=== PATIENT | female | born 1995 | race Caucasian/White ===

== ENCOUNTER 2018-08-24 17:43 | Emergency (ER) | payer BC ==
--- NOTE | 2018-08-24 17:51 | ER Report ---
History and Physical Time Seen By MD: 17:51 HPI/ROS CHIEF COMPLAINT: Dark bloody stools HISTORY OF PRESENT ILLNESS: This is a 22-year-old female who presents to the emergency department for dark bloody stools. Patient states she's had lower abd ominal cramping for approximately 3 weeks, increased intensity today, had a dark bloody stool, she states that was of large quantity. Patient has a history of gastroparesis and Crohn's disease. Takes no medications, has not taken any medications. Patient also states that over the last several weeks she's had significant fatigue, constantly feeling tired. Intermittent nausea no vomiting. No chest pain or shortness of breath. No headaches. No fevers or chills. REVIEW OF SYSTEMS: Constitutional: No fever, no chills. Eyes: No discharge. ENT: No sore throat. Cardiovascular: No chest pain, no palpitations. Respiratory: No cough, no shortness of breath. Gastrointestinal: As above. Genitourinary: No hematuria. Musculoskeletal: No back pain. Skin: No rashes. Neurological: No headache. Allergies: Coded Allergies: gluten (Verified Adverse Reaction, Mild, abdominal pain and vomiting , 08/24/18) Past Medical/Surgical History The patient has a past medical and surgical history of Crohn's disease and gastroparesis. Reviewed Nurses Notes: Yes Constitutional Vital Sign - Last 24 Hours 08/24/18 08/24/18 08/24/18 08/24/18 17:48 17:48 17:58 18:00 Temp 97.7 Pulse 87 83 Resp 16 B/P (MAP) 137/85 (102) 137/85 126/85 (99) Pulse Ox 97 89 O2 Delivery Room Air 08/24/18 08/24/18 08/24/18 08/24/18 18:28 18:30 18:43 19:13 Pulse 82 81 86 B/P (MAP) 122/84 (97) Pulse Ox 97 97 08/24/18 08/24/18 08/24/18 08/24/18 19:28 19:30 19:35 19:50 Pulse 93 95 96 B/P (MAP) 98/65 (76) Pulse Ox 96 97 95 08/24/18 08/24/18 20:00 20:05 Pulse 100 B/P (MAP) 115/72 (86) Pulse Ox 94 Physical Exam General Appearance: The patient is alert, has no immediate need for airway protection and no signs of toxicity. Eyes: Pupils equal and round no injection. Pale conjunctiva. ENT, Mouth: Mucous membranes are moist. Respiratory: There are no retractions, lungs are clear to auscultation. Cardiovascular: Regular rate and rhythm, faint systolic murmur, no clicks or rubs. Gastrointestinal: Abdomen is soft and non tender, no masses, bowel sounds normal. Neurological: Alert and oriented 4. Moving all extremities. Following all commands. No focal neuro deficits. Skin: Warm and dry, no rashes. Musculoskeletal: Neck is supple non tender. No CVA tenderness. Extremities are nontender, nonswollen and have full range of motion. DIFFERENTIAL DIAGNOSIS: After history and physical exam differential diagnosis was considered for abdominal pain in a female including but not limited to ovarian cyst, pelvic inflammatory disease, ovarian torsion, urinary tract infection, and appendicitis. Medical Decision Making Data Points Result Diagram: 08/24/18 1820 08/24/18 1820 Laboratory Hematology Test 08/24/18 18:09 08/24/18 18:20 Urine Color Straw Urine Clarity Clear Urine pH 6.0 pH (4.8-9.5) Urine Specific [place] 1.004 Urine Protein Negative mg/dL (NEGATIVE) Urine Glucose (UA) Negative mg/dL (NEGATIVE) Urine Ketones Negative mg/dL (NEGATIVE) Urine Blood Negative (NEGATIVE) Urine Nitrite Negative (NEGATIVE) Urine Bilirubin Negative (NEGATIVE) Urine Urobilinogen Negative mg/dL (0.2-1.9) Urine Leukocyte Esterase Trace (NEGATIVE) Urine RBC 1 /HPF (0-2/HPF) Urine WBC 6 /HPF (0-5/HPF) Urine Squamous Epithelial Cells Many /LPF (</=FEW) Urine Bacteria Negative /HPF (NONE-FEW) Urine Mucus None /HPF (NONE-FEW) Red Blood Count 5.52 M/uL (4.17-5.56) Mean Corpuscular Volume 86.8 fL (80.0-96.0) Mean Corpuscular Hemoglobin 29.7 pg (26.0-33.0) Mean Corpuscular Hemoglobin Concent 34.2 g/dL (32.0-36.0) Red Cell Distribution Width 12.8 % (11.5-14.5) Mean Platelet Volume 7.8 fL (7.2-11.1) Neutrophils (%) (Auto) 57.0 % (39.4-72.5) Lymphocytes (%) (Auto) 31.7 % (17.6-49.6) Monocytes (%) (Auto) 8.6 % (4.1-12.4) Eosinophils (%) (Auto) 2.3 % (0.4-6.7) Basophils (%) (Auto) 0.4 % (0.3-1.4) Nucleated RBC Relative Count (auto) 0.0 /100WBC Neutrophils # (Auto) 4.5 K/uL (2.0-7.4) Lymphocytes # (Auto) 2.5 K/uL (1.3-3.6) Monocytes # (Auto) 0.7 K/uL (0.3-1.0) Eosinophils # (Auto) 0.2 K/uL (0.0-0.5) Basophils # (Auto) 0.0 K/uL (0.0-0.1) Nucleated RBC Absolute Count (auto) 0.00 K/uL Sodium Level 137 mmol/L (137-145) Potassium Level 3.5 mmol/L (3.5-5.0) Chloride Level 101 mmol/L (98-107) Carbon Dioxide Level 26 mmol/L (22-31) Blood Urea Nitrogen 13 mg/dl (7-18) Creatinine 0.80 mg/dl (0.52-1.04) Glomerular Filtration Rate Calc > 60.0 Random Glucose 96 mg/dl (75-110) Calcium Level 9.5 mg/dl (8.4-10.2) Total Bilirubin 0.5 mg/dl (0.2-1.3) Aspartate Amino Transf (AST/SGOT) 30 U/L (0-35) Alanine Aminotransferase (ALT/SGPT) 35 U/L (0-56) Alkaline Phosphatase 60 U/L (0-126) Total Protein 7.6 g/dl (6.3-8.2) Albumin 4.5 g/dl (3.5-5.0) Human Chorionic Gonadotropin, Qual Negative (NEGATIVE) Chemistry Test 08/24/18 18:09 08/24/18 18:20 Urine Color Straw Urine Clarity Clear Urine pH 6.0 pH (4.8-9.5) Urine Specific [place] 1.004 Urine Protein Negative mg/dL (NEGATIVE) Urine Glucose (UA) Negative mg/dL (NEGATIVE) Urine Ketones Negative mg/dL (NEGATIVE) Urine Blood Negative (NEGATIVE) Urine Nitrite Negative (NEGATIVE) Urine Bilirubin Negative (NEGATIVE) Urine Urobilinogen Negative mg/dL (0.2-1.9) Urine Leukocyte Esterase Trace (NEGATIVE) Urine RBC 1 /HPF (0-2/HPF) Urine WBC 6 /HPF (0-5/HPF) Urine Squamous Epithelial Cells Many /LPF (</=FEW) Urine Bacteria Negative /HPF (NONE-FEW) Urine Mucus None /HPF (NONE-FEW) White Blood Count 7.9 k/uL (4.5-11.0) Red Blood Count 5.52 M/uL (4.17-5.56) Hemoglobin 16.4 g/dL (12.0-16.0) Hematocrit 47.9 % (34.0-47.0) Mean Corpuscular Volume 86.8 fL (80.0-96.0) Mean Corpuscular Hemoglobin 29.7 pg (26.0-33.0) Mean Corpuscular Hemoglobin Concent 34.2 g/dL (32.0-36.0) Red Cell Distribution Width 12.8 % (11.5-14.5) Platelet Count 325 K/uL (150-450) Mean Platelet Volume 7.8 fL (7.2-11.1) Neutrophils (%) (Auto) 57.0 % (39.4-72.5) Lymphocytes (%) (Auto) 31.7 % (17.6-49.6) Monocytes (%) (Auto) 8.6 % (4.1-12.4) Eosinophils (%) (Auto) 2.3 % (0.4-6.7) Basophils (%) (Auto) 0.4 % (0.3-1.4) Nucleated RBC Relative Count (auto) 0.0 /100WBC Neutrophils # (Auto) 4.5 K/uL (2.0-7.4) Lymphocytes # (Auto) 2.5 K/uL (1.3-3.6) Monocytes # (Auto) 0.7 K/uL (0.3-1.0) Eosinophils # (Auto) 0.2 K/uL (0.0-0.5) Basophils # (Auto) 0.0 K/uL (0.0-0.1) Nucleated RBC Absolute Count (auto) 0.00 K/uL Glomerular Filtration Rate Calc > 60.0 Calcium Level 9.5 mg/dl (8.4-10.2) Total Bilirubin 0.5 mg/dl (0.2-1.3) Aspartate Amino Transf (AST/SGOT) 30 U/L (0-35) Alanine Aminotransferase (ALT/SGPT) 35 U/L (0-56) Alkaline Phosphatase 60 U/L (0-126) Total Protein 7.6 g/dl (6.3-8.2) Albumin 4.5 g/dl (3.5-5.0) Human Chorionic Gonadotropin, Qual Negative (NEGATIVE) Urinalysis Test 08/24/18 18:09 Urine Color Straw Urine Clarity Clear Urine pH 6.0 pH (4.8-9.5) Urine Specific [place] 1.004 Urine Protein Negative mg/dL (NEGATIVE) Urine Glucose (UA) Negative mg/dL (NEGATIVE) Urine Ketones Negative mg/dL (NEGATIVE) Urine Blood Negative (NEGATIVE) Urine Nitrite Negative (NEGATIVE) Urine Bilirubin Negative (NEGATIVE) Urine Urobilinogen Negative mg/dL (0.2-1.9) Urine Leukocyte Esterase Trace (NEGATIVE) Urine RBC 1 /HPF (0-2/HPF) Urine WBC 6 /HPF (0-5/HPF) Urine Squamous Epithelial Cells Many /LPF (</=FEW) Urine Bacteria Negative /HPF (NONE-FEW) Urine Mucus None /HPF (NONE-FEW) EKG/Imaging Imaging Location[place] [facility] [place]: Alejandra Nolasco : 1995 Visit/Account:[id number] Date of Sevice: 08/24/2018 EXAMINATION: CT abdomen and pelvis with contrast COMPARISON: None. HISTORY: abd pain, dark bloody stool PROCEDURE: Multiplanar contrast enhanced CT of the abdomen and pelvis with 85 mL intravenous Isovue 370. One of the following dose optimization techniques was utilized in the performance of this exam: Automated exposure control; adjustment of the mA and/or kV according to the patient's size; or use of an iterative reconstruction technique. Specific details can be referenced in the facility's radiology CT exam operational policy. FINDINGS: Visualized thorax: No acute findings. Liver: Negative. Gallbladder and biliary system: Negative Spleen: Negative. Pancreas: Negative. Adrenal glands: Negative. Kidneys and bladder: No renal mass or evidence of an obstructive uropathy. Urinary bladder is unremarkable. Vessels: Within normal limits. Bowel and mesentery: Stomach, small bowel, and appendix are within normal limits. Small amount of stool in the colon. No bowel or mesenteric inflammation. Pelvic organs: Negative. Lymph nodes: No adenopathy. Free air/free fluid: None. Abdominal wall and osseous structures: Negative. IMPRESSION: Negative CT abdomen and pelvis. Report Dictated By: Juma Mi MD at 08/24/2018 7:25 PM Report E-Signed By: Juma Mi MD at 08/24/2018 7:35 PM WSN:[id number] ED Course/Re-evaluation Clinical Indication for ER IV: Hydration, IV Access ED Course The patient was admitted to room. A history of physical were obtained. Differential diagnoses were considered. IV was started. A CBC, CMP were obtaine d. CBC showing H&H 16.4 and 47.9, chemistry unremarkable, negative hCG, contaminated UA. A CT of the abdomen was negative for any acute anterior abdominal abnormalities. I did review the results with the patient. I did tell him I don't have a clear explanation for the abdominal pain, could be secondary to her chronic Crohn's disease although it does sound well controlled. I did recommend establishing with a primary care provider within the next 1 week, and I also recommended following up with Dr. Romero or over For a colonoscopy for definitive intervention. She was also instructed to take 40 mg Protonix daily for the next 2 weeks. She was given a dose of 40 mg IV Protonix. She was also given a 1 L normal saline bolus. The patient was also instructed to return to the emergency department for any other concerns or worsening symptoms., She was in agreement with this plan of care and discharged home. Decision to Disposition Date: Aug 24, 2018 Decision to Disposition Time: 20:13 Depart Departure Latest Vital Signs Vital Signs Date Time Temp Pulse Resp B/P (MAP) Pulse Ox O2 Delivery O2 Flow Rate FiO2 08/24/18 20:05 100 94 08/24/18 20:00 115/72 (86) 08/24/18 17:48 97.7 16 Room Air Impression: Primary Impression: Abdominal pain Additional Impression: Blood in stool Condition: Improved Disposition: HOME OR SELF-CARE Referrals: ROSY ROMERO,CASEY Dye MD Patient Instructions: Abdominal Pain (ED) Additional Instructions: There were no concerning findings on your CT today, your blood work looks good. I would recommend establishing with a PCP within the next week for reevaluation of your symptoms. I would also recommend following up with Dr. Romero or Dr. Dove to discuss the possibility of a colonoscopy. Please continue to drink plenty of fluids. Get plenty of rest. Take 40mg of protonix once a day for the next 2 weeks. Return to the ED for any other concerns or worsening symptoms. Problem Qualifiers Primary Impression: Abdominal pain Abdominal location: unspecified location Qualified Codes: R10.9 - Unspecified abdominal pain ADA FOY PIPE THREADER-BC Aug 24, 2018 17:51
[2018-08-24] MEDS ORDERED: NS(*) 0.9% 1000 ML BAG 1,000 ML IV ONE (18:03)
[2018-08-24] MEDS ORDERED: PANTOPRAZOLE SOD 40 MG IV VIAL IVP ONE (18:05)
[2018-08-24] MEDS ORDERED: IOPAMIDOL 76% 100 ML INFUS BTL 100 ML ONE (18:20)
[2018-08-24 18:34] LABS: PLATELET COUNT, AUTOMATED 325 K/uL (150-450)
--- NOTE | 2018-08-24 19:38 | RADIOLOGY IMAGING REPORT ---
FACILITY: [facility] - [place] PATIENT NAME: Alejandra Nolasco : 1995 MR: [id number] V: [id number] EXAM DATE: ORDERING PHYSICIAN: ADA FOY TECHNOLOGIST: Location: [facility] - [place] Patient: Alejandra Nolasco : 1995 Visit/Account:[id number] Date of Sevice: 08/24/2018 EXAMINATION: CT abdomen and pelvis with contrast COMPARISON: None. HISTORY: abd pain, dark bloody stool PROCEDURE: Multiplanar contrast enhanced CT of the abdomen and pelvis with 85 mL intravenous Isovue 3 70. One of the following dose optimization techniques was utilized in the performance of this exam: A utomated exposure control; adjustment of the mA and/or kV according to the patient's size; or use of an iterative reconstruction technique. Specific details can be referenced in the facility's radiolo gy CT exam operational policy. FINDINGS: Visualized thorax: No acute findings. Liver: Negative. Gallbladder and biliary system: Negative Spleen: Negative. Pancreas: Negative. Adrenal glands: Negative. Kidneys and bladder: No renal mass or evidence of an obstructive uropathy. Urinary bladder is unrema rkable. Vessels: Within normal limits. Bowel and mesentery: Stomach, small bowel, and appendix are within normal limits. Small amount of sto ol in the colon. No bowel or mesenteric inflammation. Pelvic organs: Negative. Lymph nodes: No adenopathy. Free air/free fluid: None. Abdominal wall and osseous structures: Negative. IMPRESSION: Negative CT abdomen and pelvis. Report Dictated By: Juma Mi MD at 08/24/2018 7:25 PM Report E-Signed By: Juma Mi MD at 08/24/2018 7:35 PM [id number]
[2018-08-24 20:00] VITALS: BP 115/72
== END 2018-08-24 20:30 | disposition home or self-care (01) ==
LOC: ER 17:55
DX: R10.30 Lower abdominal pain, unspecified (principal); K92.1 Melena
CPT/HCPCS: 74177; 81001; 84703; 85025; 86850; 86900; 86901; 96361; 96374; 99284; C9113; J7030; Q9967; 82040; 82247; 82310; 82374; 82435; 82565; 82947; 84075; 84132; 84155; 84295; 84450; 84460; 84520

== ENCOUNTER 2018-10-31 00:46 | Day surgery (SDC) | payer BC ==
[2018-10-31] VITALS (7 sets, daily range): BP systolic 95–118; BP diastolic 43–74
[~2018-10-31] VITALS: Ht 165.1 cm; Wt 75.7 kg
[2018-10-31] MEDS ORDERED: KETAMINE HCL 500 MG/10 ML VIAL ONE (07:09)
[2018-10-31] MEDS ORDERED: PROPOFOL EMUL(*) 10MG/ML 20 ML 60 ML ONE (07:09)
[2018-10-31] MEDS ORDERED: LIDOCAINE MPF 1% 5 ML VIAL ONE (07:09)
[2018-10-31] MEDS ORDERED: NORMOSOL R SOLN(*) 1000 ML BAG 1,000 ML IV PRN (07:15)
[2018-10-31] MEDS ORDERED: LIDOCAINE/SOD BICARB 8.4% SYR ID ONE (07:15)
--- NOTE | 2018-10-31 09:14 | Short(Outpt) Discharge Summary ---
Discharge Summary Reason for Hosp/Final Diag: (1) Blood in stool Status: Acute Hospital Course & Plan: pt presented for egd and colonoscopy. she tolerated the procedure well. she will be discharged home when criteria met. (2) Abdominal pain Status: Acute Departure Discharge to: Home Discharge Instructions Diet: Regular Activity: As Tolerated Special Instructions: we will call you in 10 days with biopsy results. ROSY JOYNER Oct 31, 2018 09:14
== END 2018-10-31 10:02 | disposition home or self-care (01) ==
LOC: OR 00:46
PROVIDERS: ATTEND Surgery
DX: K29.70 Gastritis, unspecified, without bleeding (principal)
CPT/HCPCS: 00813; 43239; 45378; 81025; 87077; 88305; 88313; 88344; J2001; J2704

== ENCOUNTER 2018-11-12 22:01 | Emergency (ER) | payer BC ==
--- NOTE | 2018-11-12 22:16 | ER Report ---
History and Physical Time Seen By MD: 20:05 Hx. of Stated Complaint: PATIENT HAD A ENDOSCOPY/COLONOSCOPY ON THE , DIAGNOSED CELIAC DISEASE AND GASTROPORESIS. PATIENT STATES STARTED HAVING A LOT OF LOWER ABDOMINAL PAIN, PATIENT STATES "IT FEELS LIKE THERE IS SOMETHING STUCK", PATIENT HAVING A LOT OF PRESSURE AND THEN SHARP WHILE TRYING TO HAVE BOWEL MOVEMENT. PATIENT STATES HAD A BOWEL MOVEMENT BOWEL MOVEMENT 30MINS AGO THAT WAS MOSTLY MAROON IN COLOR, MORE BLOODY THAN IT HAS BEEN. HPI/ROS CHIEF COMPLAINT: Abdominal pain, bloody stool HISTORY OF PRESENT ILLNESS: 23-year-old female has a history of celiac disease and gastroparesis. On 02 November she had an endoscopy and colonoscopy performed by Dr. Romero. She states that a biopsy showed celiac disease and the colonoscopy was otherwise normal. She has not had complications since then. This evening she was at the gym when she noticed sudden onset of left lower quadrant sharp pain. This was quickly followed by a bowel movement which was primarily blood. The blood was dark red in nearly maroon color. This was 30 minutes prior to arrival. She has not had subsequent stool. Pain is improved to 6 out of 10 but is still persistent. It is nonradiating. There are no other exacerbating or relieving factors. She was nauseous but received Zofran en route and is now not nauseous. REVIEW OF SYSTEMS: Constitutional: No fever, no chills. Eyes: no blurred vision ENT: No sore throat. Cardiovascular: No chest pain, no palpitations. Respiratory: No cough, no shortness of breath. Gastrointestinal: above Genitourinary: no dysuria Musculoskeletal: No back pain. Skin: No rashes. Neurological: No headache. Allergies: Coded Allergies: gluten (Verified Adverse Reaction, Mild, abdominal pain and vomiting , 11/12/18) Home Meds No Active Prescriptions or Reported Meds Reviewed Nurses Notes: Yes Old Medical Records Reviewed: Yes Hx Smoking: No Smoking Status: Never Smoker Exposure to Second Hand Smoke?: No Hx Alcohol Use: Yes (3/SITTING <1XMO) Constitutional Vital Sign - Last 24 Hours 11/12/18 11/12/18 11/12/18 11/12/18 22:02 22:16 22:30 22:31 Temp 98.6 Pulse 76 80 ??? Resp 16 B/P (MAP) 120/70 109/72 (84) Pulse Ox 95 96 90 O2 Delivery Room Air 11/12/18 11/12/18 11/12/18 11/12/18 22:46 23:00 23:01 23:16 Pulse 87 88 98 B/P (MAP) 102/60 (74) Pulse Ox 96 95 91 11/12/18 11/12/18 11/12/18 11/13/18 23:30 23:31 23:36 00:21 Pulse ??? 86 100 B/P (MAP) 108/63 (78) Pulse Ox 89 96 95 11/13/18 11/13/18 11/13/18 11/13/18 00:30 00:36 00:51 01:00 Pulse ? B/P (MAP) 114/50 (71) 117/63 (81) Pulse Ox 93 93 11/13/18 01:06 Pulse 109 Physical Exam General Appearance: The patient is alert, has no immediate need for airway protection and no signs of toxicity. Eyes: Pupils equal and round no pallor or injection. ENT, Mouth: Mucous membranes are moist. Respiratory: There are no retractions, lungs are clear to auscultation. Cardiovascular: Regular rate and rhythm. Gastrointestinal: LLQ ttp, non distended, no peritoneal sgs. Neurological: alert, oriented x 3 Skin: Warm and dry, no rashes. Musculoskeletal: Extremities are nontender, nonswollen and have full range of motion. DIFFERENTIAL DIAGNOSIS: After history and physical exam differential diagnosis was considered for GI bleed, mass, abscess, complication of recent procedures, or other emergent etiology Medical Decision Making Data Points Result Diagram: 11/12/18214911/12/182149 Laboratory Hematology Test 11/12/18 21:50 Red Blood Count 5.11 M/uL (4.17-5.56) Mean Corpuscular Volume 88.2 fL (80.0-96.0) Mean Corpuscular Hemoglobin 30.1 pg (26.0-33.0) Mean Corpuscular Hemoglobin Concent 34.1 g/dL (32.0-36.0) Red Cell Distribution Width 13.1 % (11.5-14.5) Mean Platelet Volume 8.2 fL (7.2-11.1) Neutrophils (%) (Auto) 47.2 % (39.4-72.5) Lymphocytes (%) (Auto) 42.1 % (17.6-49.6) Monocytes (%) (Auto) 8.3 % (4.1-12.4) Eosinophils (%) (Auto) 1.8 % (0.4-6.7) Basophils (%) (Auto) 0.6 % (0.3-1.4) Nucleated RBC Relative Count (auto) 0.0 /100WBC Neutrophils # (Auto) 3.5 K/uL (2.0-7.4) Lymphocytes # (Auto) 3.1 K/uL (1.3-3.6) Monocytes # (Auto) 0.6 K/uL (0.3-1.0) Eosinophils # (Auto) 0.1 K/uL (0.0-0.5) Basophils # (Auto) 0.0 K/uL (0.0-0.1) Nucleated RBC Absolute Count (auto) 0.00 K/uL Prothrombin Time 13.7 seconds (12.0-14.4) Prothromb Time International Ratio 1.05 Activated Partial Thromboplast Time 30 seconds (23-35) Sodium Level 137 mmol/L (137-145) Potassium Level 3.6 mmol/L (3.5-5.0) Chloride Level 102 mmol/L (98-107) Carbon Dioxide Level 24 mmol/L (22-31) Blood Urea Nitrogen 16 mg/dl (7-18) Creatinine 1.30 mg/dl (0.52-1.04) Glomerular Filtration Rate Calc 50.3 Random Glucose 91 mg/dl (75-110) Calcium Level 9.2 mg/dl (8.4-10.2) Total Bilirubin 0.4 mg/dl (0.2-1.3) Aspartate Amino Transf (AST/SGOT) 40 U/L (0-35) Alanine Aminotransferase (ALT/SGPT) 31 U/L (0-56) Alkaline Phosphatase 63 U/L (0-126) Total Protein 7.1 g/dl (6.3-8.2) Albumin 4.4 g/dl (3.5-5.0) Human Chorionic Gonadotropin, Qual Negative (NEGATIVE) Chemistry Test 11/12/18 21:50 White Blood Count 7.4 k/uL (4.5-11.0) Red Blood Count 5.11 M/uL (4.17-5.56) Hemoglobin 15.4 g/dL (12.0-16.0) Hematocrit 45.1 % (34.0-47.0) Mean Corpuscular Volume 88.2 fL (80.0-96.0) Mean Corpuscular Hemoglobin 30.1 pg (26.0-33.0) Mean Corpuscular Hemoglobin Concent 34.1 g/dL (32.0-36.0) Red Cell Distribution Width 13.1 % (11.5-14.5) Platelet Count 285 K/uL (150-450) Mean Platelet Volume 8.2 fL (7.2-11.1) Neutrophils (%) (Auto) 47.2 % (39.4-72.5) Lymphocytes (%) (Auto) 42.1 % (17.6-49.6) Monocytes (%) (Auto) 8.3 % (4.1-12.4) Eosinophils (%) (Auto) 1.8 % (0.4-6.7) Basophils (%) (Auto) 0.6 % (0.3-1.4) Nucleated RBC Relative Count (auto) 0.0 /100WBC Neutrophils # (Auto) 3.5 K/uL (2.0-7.4) Lymphocytes # (Auto) 3.1 K/uL (1.3-3.6) Monocytes # (Auto) 0.6 K/uL (0.3-1.0) Eosinophils # (Auto) 0.1 K/uL (0.0-0.5) Basophils # (Auto) 0.0 K/uL (0.0-0.1) Nucleated RBC Absolute Count (auto) 0.00 K/uL Prothrombin Time 13.7 seconds (12.0-14.4) Prothromb Time International Ratio 1.05 Activated Partial Thromboplast Time 30 seconds (23-35) Glomerular Filtration Rate Calc 50.3 Calcium Level 9.2 mg/dl (8.4-10.2) Total Bilirubin 0.4 mg/dl (0.2-1.3) Aspartate Amino Transf (AST/SGOT) 40 U/L (0-35) Alanine Aminotransferase (ALT/SGPT) 31 U/L (0-56) Alkaline Phosphatase 63 U/L (0-126) Total Protein 7.1 g/dl (6.3-8.2) Albumin 4.4 g/dl (3.5-5.0) Human Chorionic Gonadotropin, Qual Negative (NEGATIVE) Coagulation Test 11/12/18 21:50 Prothrombin Time 13.7 seconds Prothromb Time International Ratio 1.05 Activated Partial Thromboplast Time 30 seconds ED Course/Re-evaluation ED Course 23-year-old female is just under 2 weeks status post colonoscopy and endoscopy. She has had history of GI bleeding but had not had recent significant bleeding until this evening when she had one episode. She does not have repeat bleeding in emergency department. However, she has persistent pain and tenderness CT obtained. CT is unremarkable. Patient feels significantly improved after ED evaluation. Of note, she does have akathetic reaction to Phenergan which we were able to successfully treat. After evaluation it is reasonable to discharge and patient is comfortable contacting her surgeon for further follow-up and understands strict return precautions. Decision to Disposition Date: Nov 13, 2018 Decision to Disposition Time: 03:22 Depart Departure Latest Vital Signs Vital Signs Date Time Temp Pulse Resp B/P (MAP) Pulse Ox O2 Delivery O2 Flow Rate FiO2 11/13/18 01:06 109 11/13/18 01:00 117/63 (81) 11/13/18 00:51 93 11/12/18 22:02 98.6 16 Room Air Impression: Primary Impression: Abdominal pain Additional Impression: Blood in stool Condition: Improved Disposition: HOME OR SELF-CARE Referrals: ROSY ROMERO No Active Prescriptions or Reported Meds Patient Instructions: Abdominal Pain (ED) Additional Instructions: As we discussed, I recommend you call Dr. Romero's office in the morning to arrange follow up and re-evaluation. Please return if you have uncontrolled pain, increasing bleeding, or any concerns. Many times you may have a blood clot from the procedure which rebleeds after 1-2 weeks. This may be what has happened. If it is limited, as it appears to have been, then no further testing may be necessary. However, if it continues or worsens, you may need testing and procedure to control the bleed. Problem Qualifiers Primary Impression: Abdominal pain Abdominal location: left lower quadrant Qualified Codes: R10.32 - Left lower quadrant pain JANETT GONZALEZ MD Nov 12, 2018 22:16
[2018-11-12 22:48] LABS: INR 1.05
[2018-11-12 22:50] LABS: PLATELET COUNT, AUTOMATED 285 K/uL (150-450)
[2018-11-12] MEDS ORDERED: PROMETHAZINE 25 MG/ML 1 ML AMP IVP ONE (23:00)
[2018-11-12] MEDS ORDERED: diphenhydrAMINE 50 MG/ML VIAL IVP ONE (23:35)
[2018-11-12] MEDS ORDERED: IOPAMIDOL 76% 150 ML INFUS BTL 150 ML ONE (23:50)
[2018-11-13] MEDS ORDERED: diphenhydrAMINE 50 MG/ML VIAL IVP ONE (00:25)
[2018-11-13] MEDS ORDERED: LORazepam 2 MG/ML VIAL IVP ONE ×2 (00:25→00:50)
--- NOTE | 2018-11-13 00:35 | RADIOLOGY IMAGING REPORT ---
FAC[facility] PATIENT NAME: Alejandra Nolasco : 1995 MR: [id number] V: [id number] EXAM DATE: ORDERING PHYSICIAN: JANETT GONZALEZ TECHNOLOGIST: Location: [facility] Patient: Alejandra Nolasco : 1995 Visit/Account:[id number] Date of Sevice: 11/12/2018 CT of the abdomen and pelvis with contrast: Indication: Left lower quadrant pain. Status-post colonoscopy. Technique: Helical CT was performed through the abdomen and pelvis following IV contrast enhancement with 75 cc of Isovue-370. Multiplanar reconstructions are reviewed. One of the following dose optimization techniques was utilized in the performance of this exam: Autom ated exposure control; adjustment of the mA and/or kV according to the patient's size; or use of an i terative reconstruction technique. Specific details can be referenced in the facility's radiology CT exam operational policy. Comparison: 08/24/2018 Lower lung loco: No focal parenchymal or pleural abnormality is identified. Liver: Normal in size, shape, and density. The venous structures appear unremarkable. Gallbladder/biliary tree: The gallbladder appears partially contracted, but otherwise unremarkable. T he bile ducts are not dilated. Pancreas: Normal in size, shape, and density. Spleen: Normal in size, shape, and density. A small accessory spleen is incidentally noted. Adrenal glands: Within normal limits. Kidneys/urinary bladder: The kidneys are normal in size, shape, and density. There are no signs of urinary tract calculus or obstruction. The bladder appears homogeneous and unremarkable. Intestinal structures: Unremarkable, as visualized. There are no signs of obstruction, focal dilatati on, inflammatory changes, or other focal abnormality. Pelvis: The uterus and adnexal structures are unremarkable and unchanged. Aorta and vascular structures: Within normal limits. Ascites or fluid collections: No evidence of fluid. There are no signs of pneumoperitoneum. Skeletal structures: Intact and unremarkable. Impression: No acute process is identified in the abdomen or pelvis. Report Dictated By: Puneet Mckeon MD at 11/13/2018 12:20 AM Report E-Signed By: Puneet Mckeon MD at 11/13/2018 12:31 AM WSN:[id number]
[2018-11-13] MEDS ORDERED: KETOROLAC 15 MG/ML VIAL IVP ONE (00:50)
[2018-11-13 03:29] VITALS: BP 100/73
== END 2018-11-13 03:46 | disposition home or self-care (01) ==
LOC: ER 22:10
DX: R10.32 Left lower quadrant pain (principal); K92.1 Melena
CPT/HCPCS: 74177; 84703; 85025; 85610; 85730; 96374; 96375; 96376; 99284; J1200; J1885; J2060; J2550; Q9967; 82040; 82247; 82310; 82374; 82435; 82565; 82947; 84075; 84132; 84155; 84295; 84450; 84460; 84520

== ENCOUNTER → 2018-11-12 | Outpatient (CLI) | payer BC | LOC: AMB 21:55 | PROVIDERS: ATTEND Nurse Practitioner | DX: R10.32 Left lower quadrant pain (principal); R10.31 Right lower quadrant pain; K92.1 Melena | CPT/HCPCS: A0425; A0427 ==